=== PATIENT | female | born 1945 | race Caucasian/White ===

== ENCOUNTER 2017-07-30 11:49 | Outpatient (CLI) | payer MEDICARE, OTHER ==
[2016-01-10 09:48] VITALS: BP 153/94
[2017-07-30 12:18] LABS: BASOPHILS % 0.3 (0.0-1.5); EOSINOPHILS % 0.7 % (0.0-6.8); MEAN CORPUSCULAR VOLUME 92.4 fl (80.0-100.0); MONOCYTES % 11.3 % (0.0-11.0); NEUTROPHILS # 4.5 # k/uL (1.4-7.7)
[2017-07-30 12:35] LABS: eGFR (African) > 60; eGFR (Non-African) > 60
[2017-07-31 09:31] LABS: ADENOVIRUS F 40/41 Not Detected (Not Detected); ASTROVIRUS Not Detected (Not Detected); C. DIFFICILE (TOXIN A/B) Not Detected (Not Detected); CRYPTOSPORIDIUM Not Detected (Not Detected); CYCLOSPORA CAYETANENSIS Not Detected (Not Detected); ENTAMOEBA HISTOLYTICA Not Detected (Not Detected); GIARDIA LAMBLIA Not Detected (Not Detected); ROTAVIRUS A Not Detected (Not Detected); SAPOVIRUS Not Detected (Not Detected); VIBRIO CHOLERAE Not Detected (Not Detected)
== END 2017-07-30 11:50 ==
LOC: LAB 11:49
PROVIDERS: ATTEND Family Medicine
DX: R19.7 Diarrhea, unspecified (principal)
CPT/HCPCS: 36415; 80053; 85025; 87507

== ENCOUNTER 2018-08-05 08:42 | Outpatient (CLI) | payer MEDICARE, OTHER ==
[2016-01-10 09:48] VITALS: BP 153/94
[2018-08-05 09:31] LABS: eGFR (Non-African) 42
== END 2018-08-05 08:44 ==
LOC: LAB 08:42
PROVIDERS: ATTEND Family Medicine
DX: E78.2 Mixed hyperlipidemia (principal); R19.7 Diarrhea, unspecified
CPT/HCPCS: 36415; 80053; 80061; 87045; 87046; 87177; 87328; 87329; 87427

== ENCOUNTER 2018-09-02 10:25 | Outpatient (CLI) | payer MEDICARE, OTHER ==
[2016-01-10 09:48] VITALS: BP 153/94
[2018-09-02 10:54] LABS: MEAN CORPUSCULAR HEMOGLOBIN 31.2 pg (28.0-34.0)
[2018-09-02 10:55] LABS: BASOPHILS % 0.4 (0.0-1.5); EOSINOPHILS % 1.4 % (0.0-6.8); MONOCYTES % 5.4 % (0.0-11.0); NEUTROPHILS # 2.9 # k/uL (1.4-7.7)
[2018-09-02 11:09] LABS: eGFR (Non-African) > 60
[2018-09-02 14:10] LABS: APPEARANCE,URINE CLEAR (CLEAR); COLOR,URINE YELLOW (YELLOW); OCCULT BLOOD,URINE TRACE-LYSED (NEGATIVE); PH URINE 5.5 (5.0 - 8.0)
[2018-09-02 14:11] LABS: UROBILINOGEN URINE 0.2 Eu (0.2-1.0)
== END 2018-09-02 10:26 ==
LOC: LAB 10:25
PROVIDERS: ATTEND Internal Medicine Nephrology
DX: N17.9 Acute kidney failure, unspecified (principal); I10 Essential (primary) hypertension; R19.7 Diarrhea, unspecified; Z68.23 Body mass index [BMI] 23.0-23.9, adult
CPT/HCPCS: 36415; 80053; 81002; 82150; 83690; 84443; 84550; 85025

== ENCOUNTER 2019-05-09 09:06 | Outpatient (CLI) | payer MEDICARE, OTHER ==
[2016-01-10 09:48] VITALS: BP 153/94
[2019-05-09 09:45] LABS: eGFR (Non-African) > 60
[2019-05-09 09:46] LABS: HDL 45 mg/dL (>40)
[2019-05-09 09:57] LABS: BASOPHILS % 0.4 % (0.0-1.5); NEUTROPHILS # 3.3 # k/uL (1.4-7.7); SEGMENTED NEUTROPHILS % 52 % (39-79)
== END 2019-05-09 09:11 ==
LOC: LAB 09:06
PROVIDERS: ATTEND Internal Medicine Nephrology
DX: I10 Essential (primary) hypertension (principal); N17.9 Acute kidney failure, unspecified; R19.7 Diarrhea, unspecified
CPT/HCPCS: 36415; 80061; 80069; 85025